=== PATIENT | male | born 1950 | race Caucasian/White ===

== ENCOUNTER 2016-12-05 14:36 | Outpatient (CLI) ==
[2013-02-08 18:12] VITALS: BMI 30.7
--- NOTE | 2016-12-05 14:55 | DI ---
EXAM: Radiographs, left first toe HISTORY: Initial presentation for left first toe injury. COMPARISON: None available. TECHNIQUE: Three-view. FINDINGS/IMPRESSION: Oblique nondisplaced intra-articular fracture of the base of the first distal phalanx noted. No dis location identified.
== END 2016-12-05 14:37 | disposition home or self-care (01) ==
LOC: RAD 14:36
PROVIDERS: ATTEND Family Medicine
DX: M79.675 Pain in left toe(s) (principal)

== ENCOUNTER 2018-01-01 12:58 | Outpatient (POV) ==
[2013-02-08 18:12] VITALS: BMI 30.7
== END 2018-01-01 17:00 ==
LOC: OUTPT 12:58
PROVIDERS: ATTEND Otolaryngology
DX: H91.90 Unspecified hearing loss, unspecified ear (principal)